=== PATIENT | male | born 1965 | race Caucasian/White ===

== ENCOUNTER 2016-09-11 11:28 | Emergency (ER) | payer OTHER ==
[~2016-09-11] VITALS: Ht 182.9 cm; Wt 130.9 kg
[~2016-09-11 11:28] MED LIST: ANCEF,KEFZ2 GM/100 M IV; ATORVASTATIN CA40 MG PO; BACLOFEN10 MG PO; CYMBALTA60 MG PO; DULOXETINE HCL60 MG PO; HYDROCODON-ACE1 EAC7 PO; IODOSORB40 GM TP; IRON325 MG PO; K-DUR20 MEQ PO; LANTUS 10100 UNITS/ SC; LANTUS 3 M100 UNITS1 SC; LASIX40 MG PO; LEVOTHYROXINE150 MCG PO; LIDOCAINE700 MG TD; LISINOPRIL20 MG PO; LYRICA100 MG PO; LYRICA150 MG PO; MAG-OXIDE400 MG PO; METFORMIN HCL1000 MG PO; METHADONE1 MG/1 ML PO; METHADONE10 MG PO; METOPROLOL TART25 MG PO; MOBIC15 MG PO; NAFCIL IV; NEURONTIN300 MG PO; NOVOLOG 10100 UNITS/ SC; OMEPRAZOLE20 MG PO; PERCOCET 10/1 TABLET PO; PRILOSEC20 MG PO; PRINIVIL20 MG PO; PROMETHAZINE HC25 M1 PO; TOPROL XL25 MG PO; XANAX0.25 MG PO; ZOFRAN4 MG PO
[2016-09-11 11:32] VITALS: BP 135/80
[2016-09-11 12:04] LABS: HEMATOCRIT 30.1 % (38.0-50.0); MCH 23.6 PG (29.0-34.0); MCHC 30.9 G/DL (30.0-36.0); MCV 76.4 FL (86-99); MEAN PLAT.VOLUME 9.5 uM^3 (9.0-12.4); PLATELET COUNT 206 K/uL (156-360); RBC DIS.WIDTH-CV 18.4 % (11.8-14.6); RBC DIS.WIDTH-SD 47.5 % (39-53); RED BLOOD COUNT 3.94 M/uL (4.00-5.50); WHITE BLOOD COUNT 8.9 K/uL (4.1-10.2)
[2016-09-11 12:13] LABS: CHLORIDE 100 mEq/L (99-109); SODIUM 140 mEq/L (136-147)
[2016-09-11 12:14] LABS: GLUCOSE 156 mg/dL (70-99)
[2016-09-11 12:16] LABS: ANION GAP 7 MEQ/L (2-14)
[2016-09-11 12:18] LABS: GFR ESTIMATE (CALCULATED) > 59 mL/min/
[2016-09-11 12:19] LABS: UREA NITROGEN (BUN) 11 mg/dL (9-23)
[2016-09-11 12:25] LABS: TROP-I INTERPRETATION NEGATIVE; TROPONIN-I 0.06 ng/mL (0.0-0.30)
== END 2016-09-11 15:05 | disposition left against medical advice (07) ==
LOC: EME 11:28
DX: M25.422 Effusion, left elbow (principal); Z53.21 Procedure and treatment not carried out due to patient leaving prior to being seen by health care provider
CPT/HCPCS: 80048; 84484; 85027; 93005

== ENCOUNTER 2016-09-13 15:56 | Emergency (ER) | payer OTHER ==
[~2016-09-13] VITALS: Ht 182.9 cm; Wt 127.2 kg
[2016-09-13 17:23] LABS: EOSINOPHIL (%) 1.9 % (0-5); EOSINOPHIL COUNT 0.1 K/uL (0-0.3); HEMATOCRIT 29.1 % (38.0-50.0); IMMATURE GRANULOCYTE (%) 0.1 % (0.0-0.7); IMMATURE GRANULOCYTE COUNT 0.1 K/uL; LYMPHOCYTE COUNT 2.1 K/uL (1.0-2.8); MCH 23.8 PG (29.0-34.0); MCHC 31.3 G/DL (30.0-36.0); MEAN PLAT.VOLUME 9.4 uM^3 (9.0-12.4); MONOCYTE (%) 6.6 % (3-12); MONOCYTE COUNT 0.5 K/uL (0-0.8); NEUTROPHIL (%) 61.4 % (45-76); NEUTROPHIL COUNT 4.3 K/uL (1.8-6.4); PLATELET COUNT 186 K/uL (156-360); RBC DIS.WIDTH-CV 17.8 % (11.8-14.6); RED BLOOD COUNT 3.83 M/uL (4.00-5.50)
[2016-09-13 17:31] LABS: CHLORIDE 100 mEq/L (99-109); SODIUM 139 mEq/L (136-147)
[2016-09-13 17:32] LABS: D-DIMER ELISA 2.33 mg/L FEU (< 0.57)
[2016-09-13 17:34] LABS: GLUCOSE 171 mg/dL (70-99)
[2016-09-13 17:35] LABS: ANION GAP 7 MEQ/L (2-14)
[2016-09-13 17:36] LABS: TOTAL BILIRUBIN 0.4 mg/dL (0.0-1.0)
[2016-09-13 17:37] LABS: ALKALINE PHOSPHATASE 118 IU/L (3-129); GFR ESTIMATE (CALCULATED) > 59 mL/min/
[2016-09-13 17:38] LABS: UREA NITROGEN (BUN) 12 mg/dL (9-23)
[2016-09-13 17:44] LABS: TROP-I INTERPRETATION NEGATIVE; TROPONIN-I 0.07 ng/mL (0.0-0.30)
[2016-09-13] MEDS ORDERED: LASIX40 MG PO (20:58)
[2016-09-13 21:27] VITALS: BP 149/70
== END 2016-09-13 21:28 | disposition home or self-care (01) ==
LOC: EME → EDBD 15:56 → EME 21:28
PROVIDERS: Emergency Medicine
DX: J90 Pleural effusion, not elsewhere classified (principal); R60.0 Localized edema; M25.522 Pain in left elbow; R10.32 Left lower quadrant pain; F17.210 Nicotine dependence, cigarettes, uncomplicated; I10 Essential (primary) hypertension; E11.9 Type 2 diabetes mellitus without complications; Z79.4 Long term (current) use of insulin; Z79.891 Long term (current) use of opiate analgesic
CPT/HCPCS: 71010; 71275; 80053; 83880; 84484; 85025; 85379; 99281; 99284; J1940; J7644

== ENCOUNTER 2016-09-30 07:30 | Inpatient (IN) | payer OTHER ==
[~2016-09-30] VITALS: Ht 182.9 cm; Wt 123.0 kg
[2016-09-30 08:16] LABS: HEMATOCRIT 28.4 % (38.0-50.0); MCH 23.7 PG (29.0-34.0); MCV 76.5 FL (86-99); MEAN PLAT.VOLUME 9.2 uM^3 (9.0-12.4); PLATELET COUNT 191 K/uL (156-360); RBC DIS.WIDTH-CV 17.5 % (11.8-14.6); RBC DIS.WIDTH-SD 45.2 % (39-53); RED BLOOD COUNT 3.71 M/uL (4.00-5.50)
[2016-09-30 08:18] LABS: BASOPHIL COUNT 0.1 K/uL (0-0.1); EOSINOPHIL (%) 1.5 % (0-5); EOSINOPHIL COUNT 0.1 K/uL (0-0.3); IMMATURE GRANULOCYTE (%) 0.3 % (0.0-0.7); IMMATURE GRANULOCYTE COUNT 0.2 K/uL; LYMPHOCYTE COUNT 2.3 K/uL (1.0-2.8); MONOCYTE (%) 7.4 % (3-12); MONOCYTE COUNT 0.6 K/uL (0-0.8); NEUTROPHIL (%) 60.8 % (45-76); NEUTROPHIL COUNT 4.9 K/uL (1.8-6.4)
[2016-09-30 08:44] LABS: CHLORIDE 97 mEq/L (99-109); POTASSIUM 3.6 mEq/L (3.7-5.4); SODIUM 139 mEq/L (136-147)
[2016-09-30 08:46] LABS: GLUCOSE 316 mg/dL (70-99)
[2016-09-30 08:48] LABS: ANION GAP 8 MEQ/L (2-14); TROP-I INTERPRETATION NEGATIVE; TROPONIN-I 0.08 ng/mL (0.0-0.30)
[2016-09-30 08:50] LABS: GFR ESTIMATE (CALCULATED) > 59 mL/min/
[2016-09-30 08:51] LABS: UREA NITROGEN (BUN) 12 mg/dL (9-23)
[2016-09-30 11:46] LABS: BASE EXCESS 10.5 mEq/L (-3 to +3); BICARBONATE 37.8 mEq/L (22-26); COMMENTS - BLOOD GASES A+C+; O2 FLOW 2 L/MIN; PCO2 61 mm Hg (35-45); PO2 69 mm Hg (80-100); SITE RR; TOTAL RESP RATE 22 resp/min
[2016-09-30] MEDS ORDERED: LYRICA200 MG PO (12:01)
[2016-09-30] MEDS ORDERED: CYMBALTA60 MG PO (12:02)
[2016-09-30] MEDS ORDERED: NOVOLOG 10100 UNITS/ SC (12:04)
[2016-09-30 12:06] LABS: HEMATOCRIT 29.6 % (38.0-50.0); IMM.RETIC FRACTION 18.7 % (3-19); MCH 23.4 PG (29.0-34.0); MCHC 30.7 G/DL (30.0-36.0); MCV 76.1 FL (86-99); MEAN PLAT.VOLUME 9.3 uM^3 (9.0-12.4); PLATELET COUNT 215 K/uL (156-360); RBC DIS.WIDTH-CV 17.3 % (11.8-14.6); RBC DIS.WIDTH-SD 45.6 % (39-53); RED BLOOD COUNT 3.89 M/uL (4.00-5.50); RETICULOCYTE COUNT 2.5 % (0.5-1.8); WHITE BLOOD COUNT 8.8 K/uL (4.1-10.2)
[2016-09-30 12:08] LABS: BASOPHIL COUNT 0.1 K/uL (0-0.1); EOSINOPHIL (%) 0.8 % (0-5); EOSINOPHIL COUNT 0.1 K/uL (0-0.3); IMMATURE GRANULOCYTE (%) 0.2 % (0.0-0.7); IMMATURE GRANULOCYTE COUNT 0.2 K/uL; LYMPHOCYTE COUNT 2.2 K/uL (1.0-2.8); MONOCYTE (%) 7.1 % (3-12); MONOCYTE COUNT 0.6 K/uL (0-0.8); NEUTROPHIL (%) 66.4 % (45-76); NEUTROPHIL COUNT 5.8 K/uL (1.8-6.4)
[2016-09-30 12:21] LABS: POINT-OF-CARE METER ID UU14100415
[2016-09-30 12:22] LABS: TOTAL BILIRUBIN 0.4 mg/dL (0.0-1.0)
[2016-09-30 12:23] LABS: ALKALINE PHOSPHATASE 101 IU/L (3-129)
[2016-09-30 12:25] LABS: DIRECT BILIRUBIN 0.2 mg/dL (0.0-0.3)
[2016-09-30 13:17] LABS: IRON 28 MCG/DL (35-150)
[2016-09-30 13:36] LABS: FERRITIN 80 NG/ML (22-322)
[2016-09-30 16:31] VITALS: BP 165/79
[2016-09-30 19:41] VITALS: BP 169/79
[2016-10-01 04:14] VITALS: BP 139/78
[2016-10-01 07:49] VITALS: BP 166/74
[2016-10-01 19:21] VITALS: BP 148/69
[2016-10-01 21:16] LABS: POINT-OF-CARE USER ID BHSKTD
[2016-10-02 00:17] VITALS: BP 146/82
[2016-10-02 04:18] VITALS: BP 172/87
[2016-10-02 07:20] LABS: ERTH.SED.RATE 119 MM/HR (0-20)
[2016-10-02 08:01] LABS: HEMATOCRIT 27.3 % (38.0-50.0); MCH 23.3 PG (29.0-34.0); MCHC 30.4 G/DL (30.0-36.0); MCV 76.7 FL (86-99); MEAN PLAT.VOLUME 9.8 uM^3 (9.0-12.4); PLATELET COUNT 179 K/uL (156-360); RBC DIS.WIDTH-CV 17.4 % (11.8-14.6); RBC DIS.WIDTH-SD 48.8 % (39-53); RED BLOOD COUNT 3.56 M/uL (4.00-5.50); WHITE BLOOD COUNT 8.3 K/uL (4.1-10.2)
[2016-10-02 08:05] LABS: ANION GAP 5 MEQ/L (2-14); CHLORIDE 98 MEQ/L (99-109); POTASSIUM 3.6 MEQ/L (3.7-5.4); SAMPLE HEMOLYSIS CHECK 0; SAMPLE ICTERIC CHECK 0; SAMPLE LIPEMIA CHECK 0; SODIUM 140 MEQ/L (136-147)
[2016-10-02 08:11] LABS: GFR ESTIMATE (CALCULATED) > 59 mL/min/; GLUCOSE 212 mg/dL (70-99); UREA NITROGEN (BUN) 19 mg/dL (9-23)
[2016-10-02 08:33] VITALS: BP 176/92
[2016-10-02 11:30] VITALS: BP 139/82
[2016-10-02 15:50] VITALS: BP 166/83
[2016-10-02 19:42] VITALS: BP 177/89
[2016-10-03] VITALS (7 sets, daily range): BP systolic 140–163; BP diastolic 71–87
[2016-10-03 07:02] LABS: HEMATOCRIT 28.6 % (38.0-50.0); MCH 23.4 PG (29.0-34.0); MCHC 29.7 G/DL (30.0-36.0); MCV 78.6 FL (86-99); MEAN PLAT.VOLUME 10.3 uM^3 (9.0-12.4); PLATELET COUNT 215 K/uL (156-360); RBC DIS.WIDTH-SD 51.4 % (39-53); RED BLOOD COUNT 3.64 M/uL (4.00-5.50); WHITE BLOOD COUNT 9.6 K/uL (4.1-10.2)
[2016-10-03 07:18] LABS: Estimated Average Glucose 171 mg/dL (70-123)
[2016-10-03 07:30] LABS: HEMOGLOBIN A1c (GLYCOHEMOGLOB) 7.6 % HGB (Below 5.7)
[2016-10-03 08:44] LABS: ANION GAP 6 MEQ/L (2-14); CHLORIDE 97 MEQ/L (99-109); GFR ESTIMATE (CALCULATED) > 59 mL/min/; POTASSIUM 3.5 MEQ/L (3.7-5.4); SAMPLE HEMOLYSIS CHECK 0; SAMPLE ICTERIC CHECK 0; SAMPLE LIPEMIA CHECK 0; SODIUM 141 MEQ/L (136-147); UREA NITROGEN (BUN) 22 mg/dL (9-23)
[2016-10-03 08:49] LABS: GLUCOSE 120 mg/dL (70-99)
[2016-10-03 23:14] LABS: HGBE Erythrocyte Cnt 3.62 Mill/uL (4.20-5.80); HGBE Hematocrit 27.4 % (38.5-50.0); HGBE Hemoglobin 8.4 g/dL (13.2-17.1); HGBE MCH 23.2 pg (27.0-33.0); HGBE MCV 75.7 FL (80.0-100.0); HGBE RDW 19.6 % (11.0-15.0)
[2016-10-04 07:08] LABS: HEMATOCRIT 27.3 % (38.0-50.0); MCH 23.7 PG (29.0-34.0); MCHC 30.4 G/DL (30.0-36.0); MEAN PLAT.VOLUME 10.1 uM^3 (9.0-12.4); PLATELET COUNT 196 K/uL (156-360); RBC DIS.WIDTH-SD 51.1 % (39-53); WHITE BLOOD COUNT 8.1 K/uL (4.1-10.2)
[2016-10-04 07:37] LABS: ANION GAP 5 MEQ/L (2-14); CHLORIDE 99 MEQ/L (99-109); GFR ESTIMATE (CALCULATED) > 59 mL/min/; POTASSIUM 3.7 MEQ/L (3.7-5.4); SAMPLE HEMOLYSIS CHECK 0; SAMPLE ICTERIC CHECK 0; SAMPLE LIPEMIA CHECK 0; SODIUM 141 MEQ/L (136-147); UREA NITROGEN (BUN) 23 mg/dL (9-23)
[2016-10-04 07:40] LABS: GLUCOSE 232 mg/dL (70-99)
[2016-10-04 08:00] VITALS: BP 162/97
[2016-10-04 11:00] VITALS: BP 139/83
[2016-10-04 16:00] VITALS: BP 140/76
[2016-10-04 20:15] VITALS: BP 141/71
[2016-10-05 00:26] VITALS: BP 160/70
[2016-10-05 04:17] VITALS: BP 160/71
[2016-10-05 07:38] VITALS: BP 143/94
[2016-10-05 08:44] LABS: HEMATOCRIT 27.8 % (38.0-50.0); MCH 23.4 PG (29.0-34.0); MCHC 29.9 G/DL (30.0-36.0); MCV 78.5 FL (86-99); MEAN PLAT.VOLUME 9.4 uM^3 (9.0-12.4); PLATELET COUNT 175 K/uL (156-360); RBC DIS.WIDTH-CV 17.7 % (11.8-14.6); RBC DIS.WIDTH-SD 50.2 % (39-53); RED BLOOD COUNT 3.54 M/uL (4.00-5.50); WHITE BLOOD COUNT 9.1 K/uL (4.1-10.2)
[2016-10-05 09:03] LABS: ANION GAP 5 MEQ/L (2-14); CHLORIDE 100 MEQ/L (99-109); GFR ESTIMATE (CALCULATED) > 59 mL/min/; GLUCOSE 192 mg/dL (70-99); POTASSIUM 3.5 MEQ/L (3.7-5.4); SAMPLE HEMOLYSIS CHECK 0; SAMPLE ICTERIC CHECK 0; SAMPLE LIPEMIA CHECK 0; SODIUM 141 MEQ/L (136-147); UREA NITROGEN (BUN) 19 mg/dL (9-23)
[2016-10-05 11:51] VITALS: BP 135/78
[2016-10-05 15:38] VITALS: BP 134/76
[2016-10-05 19:43] VITALS: BP 140/76
[2016-10-06 00:45] VITALS: BP 155/86
[2016-10-06 01:25] VITALS: BP 154/94
[2016-10-06 08:35] VITALS: BP 152/79
[2016-10-06 08:45] LABS: HEMATOCRIT 30.3 % (38.0-50.0); MCH 24.3 PG (29.0-34.0); MCV 80.8 FL (86-99); RBC DIS.WIDTH-CV 18.5 % (11.8-14.6); RBC DIS.WIDTH-SD 52.3 % (39-53); RED BLOOD COUNT 3.75 M/uL (4.00-5.50); WHITE BLOOD COUNT 10.9 K/uL (4.1-10.2)
[2016-10-06 08:56] LABS: ANION GAP 4 MEQ/L (2-14); CHLORIDE 102 MEQ/L (99-109); GFR ESTIMATE (CALCULATED) > 59 mL/min/; GLUCOSE 116 mg/dL (70-99); POTASSIUM 3.9 MEQ/L (3.7-5.4); SAMPLE HEMOLYSIS CHECK 0; SAMPLE ICTERIC CHECK 0; SAMPLE LIPEMIA CHECK 0; SODIUM 143 MEQ/L (136-147); UREA NITROGEN (BUN) 19 mg/dL (9-23)
[2016-10-06 09:25] LABS: MEAN PLAT.VOLUME 10.7 uM^3 (9.0-12.4); PLATELET COUNT 194 K/uL (156-360)
[2016-10-06] MEDS ORDERED: DOCUSATE SODIU100 MG PO (10:23)
[2016-10-06] MEDS ORDERED: PREDNISONE10 MG PO (10:23)
[2016-10-06] MEDS ORDERED: METOPROLOL TART25 MG PO (10:23)
[2016-10-06] MEDS ORDERED: ADVAIR HFA120 INHALA IH (10:23)
[2016-10-06] MEDS ORDERED: LISINOPRIL20 MG PO (10:23)
[2016-10-06] MEDS ORDERED: IRON325 MG PO (10:24)
== END 2016-10-06 15:17 | disposition home or self-care (01) | DRG 292 ==
LOC: EME 07:30 → 5SOUTH 11:23 → EDOF 11:23 → 5SOUTH 12:33
PROVIDERS: Anesthesiology; Emergency Medicine; Hospitalist; Internal Medicine; Internal Medicine Hematology & Oncology; Nurse Practitioner Family; Physician Assistant Medical
DX: I11.0 Hypertensive heart disease with heart failure (principal); I50.23 Acute on chronic systolic (congestive) heart failure; J44.1 Chronic obstructive pulmonary disease with (acute) exacerbation; I42.0 Dilated cardiomyopathy; F17.210 Nicotine dependence, cigarettes, uncomplicated; E11.40 Type 2 diabetes mellitus with diabetic neuropathy, unspecified; E78.5 Hyperlipidemia, unspecified; E66.9 Obesity, unspecified; D50.9 Iron deficiency anemia, unspecified; F11.20 Opioid dependence, uncomplicated; K59.03 Drug induced constipation; T40.2X5A Adverse effect of other opioids, initial encounter; I44.7 Left bundle-branch block, unspecified; L95.9 Vasculitis limited to the skin, unspecified; Z99.81 Dependence on supplemental oxygen; Z79.4 Long term (current) use of insulin; Z68.36 Body mass index [BMI] 36.0-36.9, adult; Z96.652 Presence of left artificial knee joint
CPT/HCPCS: 36600; 71010; 71275; 80048; 80076; 81003; 82272; 82607; 82728; 82746; 82803; 82948; 83021 90; 83036; 83540; 83880; 84443; 84484; 85025; 85025 91; 85027; 85045; 85651; 93005; 93306; 94640; 94640 76; 94760; 94799; 99202; 99281; 99285; J1644; J1756; J1815; J1885; J1940; J7050; J7512

== ENCOUNTER 2016-10-17 16:45 | Inpatient (IN) | payer OTHER ==
[~2016-10-17] VITALS: Ht 182.9 cm; Wt 128.1 kg
[~2016-10-17 16:45] MED LIST changes: +ADVAIR HFA120 INHALA IH; +DOCUSATE SODIU100 MG PO; +LYRICA200 MG PO; +PREDNISONE10 MG PO
[2016-10-17 17:18] LABS: HEMATOCRIT 26.9 % (38.0-50.0); MCH 23.6 PG (29.0-34.0); MCHC 29.7 G/DL (30.0-36.0); MCV 79.4 FL (86-99); MEAN PLAT.VOLUME 9.8 uM^3 (9.0-12.4); PLATELET COUNT 231 K/uL (156-360); RBC DIS.WIDTH-CV 18.3 % (11.8-14.6); RBC DIS.WIDTH-SD 49.2 % (39-53); RED BLOOD COUNT 3.39 M/uL (4.00-5.50); WHITE BLOOD COUNT 8.6 K/uL (4.1-10.2)
[2016-10-17 17:28] LABS: MAGNESIUM 1.5 mg/dL (1.3-2.7)
[2016-10-17 17:32] LABS: INTER. NORMALIZED RATIO 1.1; PROTHROMBIN TIME 11.2 (9.2-11.2)
[2016-10-17 17:57] LABS: TROP-I INTERPRETATION POSITIVE
[2016-10-17 17:58] LABS: TROPONIN-I 0.65 ng/mL (0.0-0.30)
[2016-10-17 18:04] LABS: CHLORIDE 95 mEq/L (99-109); POTASSIUM 4.6 mEq/L (3.7-5.4); SODIUM 135 mEq/L (136-147)
[2016-10-17 18:07] LABS: ANION GAP 11 MEQ/L (2-14)
[2016-10-17 18:09] LABS: GFR ESTIMATE (CALCULATED) > 59 mL/min/
[2016-10-17 18:10] LABS: GLUCOSE 419 mg/dL (70-99); UREA NITROGEN (BUN) 20 mg/dL (9-23)
[2016-10-17] MEDS ORDERED: LISINOPRIL40 MG PO (19:09)
[2016-10-17] MEDS ORDERED: XANAX0.5 MG PO (19:11)
[2016-10-17] MEDS ORDERED: FUROSEMIDE20 MG PO (19:12)
[2016-10-17] MEDS ORDERED: ADVAIR 250/501 DISK IH (19:13)
[2016-10-17] MEDS ORDERED: COLACE100 MG PO (19:14)
[2016-10-17] MEDS ORDERED: NOVOLOG 10100 UNITS/ SC (19:14)
[2016-10-17] MEDS ORDERED: PREDNISONE10 MG PO ×3 (19:15→19:17)
[2016-10-17] MEDS ORDERED: KLOR-CON M2020 MEQ PO (19:19)
[2016-10-17] MEDS ORDERED: PROVENTIL,2.5 MG/3 M IH (19:19)
[2016-10-17] MEDS ORDERED: PULMICORT FLE180 MCG IH (19:20)
[2016-10-17] MEDS ORDERED: VENTOLIN HFA18 GM IH (19:21)
[2016-10-17] MEDS ORDERED: DUONEB 2.5-0.5 M3 ML AEROSOL (19:26)
[2016-10-17 21:30] VITALS: BP 121/79
[2016-10-17 21:44] VITALS: BP 121/79
[2016-10-17 22:00] VITALS: BP 116/76
[2016-10-17 23:00] VITALS: BP 114/85
[2016-10-17 23:11] LABS: METH RESISTANT S AUREUS PCR NEGATIVE (NEGATIVE)
[2016-10-17 23:12] LABS: PROBE CHECK PASS; SPECIMEN PROCESSING CONTROL PASS
[2016-10-17 23:30] LABS: POINT-OF-CARE USER ID LABHNS84
[2016-10-18] VITALS (25 sets, daily range): BP systolic 82–144; BP diastolic 53–102
[2016-10-18 00:58] LABS: TROP-I INTERPRETATION POSITIVE
[2016-10-18 01:08] LABS: TROPONIN-I 0.71 ng/mL (0.0-0.30)
[2016-10-18 07:37] LABS: POINT-OF-CARE METER ID UU13113731
[2016-10-18 08:27] LABS: POINT-OF-CARE METER ID UU13113731
[2016-10-18 08:48] LABS: HEMATOCRIT 25.3 % (38.0-50.0); MCH 22.8 PG (29.0-34.0); MCHC 28.9 G/DL (30.0-36.0); MCV 79.1 FL (86-99); MEAN PLAT.VOLUME 9.3 uM^3 (9.0-12.4); PLATELET COUNT 185 K/uL (156-360); RBC DIS.WIDTH-CV 18.6 % (11.8-14.6); WHITE BLOOD COUNT 7.6 K/uL (4.1-10.2)
[2016-10-18 08:49] LABS: EOSINOPHIL (%) 1.6 % (0-5); EOSINOPHIL COUNT 0.1 K/uL (0-0.3); IMMATURE GRANULOCYTE (%) 0.3 % (0.0-0.7); LYMPHOCYTE COUNT 2.7 K/uL (1.0-2.8); MONOCYTE (%) 8.2 % (3-12); MONOCYTE COUNT 0.6 K/uL (0-0.8); NEUTROPHIL (%) 54.5 % (45-76); NEUTROPHIL COUNT 4.1 K/uL (1.8-6.4)
[2016-10-18 08:53] LABS: BASE EXCESS 12.8 mEq/L (-3 to +3); BICARBONATE 38.5 mEq/L (22-26); CARBOXY HGB 2.9 % (0-5); METHEMOGLOBIN 1.5 % (0-1.5); PCO2 58 mm Hg (35-45); PO2 67 mm Hg (80-100); pH 7.43 (7.35-7.45)
[2016-10-18 08:54] LABS: COMMENTS - BLOOD GASES A+C+; DEVICE NC; O2 FLOW 4 L/MIN; SITE LR
[2016-10-18 08:55] LABS: TOTAL RESP RATE 14 resp/min
[2016-10-18 09:03] LABS: POINT-OF-CARE METER ID UU13113731
[2016-10-18 09:14] LABS: ANION GAP 6 MEQ/L (2-14); CHLORIDE 97 MEQ/L (99-109); GFR ESTIMATE (CALCULATED) > 59 mL/min/; GLUCOSE 97 mg/dL (70-99); MAGNESIUM 1.8 mg/dl (1.3-2.7); POTASSIUM 3.7 MEQ/L (3.7-5.4); SAMPLE HEMOLYSIS CHECK 0; SAMPLE ICTERIC CHECK 0; SAMPLE LIPEMIA CHECK 0; SODIUM 140 MEQ/L (136-147); UREA NITROGEN (BUN) 17 mg/dL (9-23)
[2016-10-18 09:27] LABS: TROP-I INTERPRETATION POSITIVE
[2016-10-18 09:43] LABS: TROPONIN-I 0.93 ng/mL (0.0-0.30)
[2016-10-18 11:10] LABS: POINT-OF-CARE METER ID UU13113731
[2016-10-18 12:42] LABS: HEMATOCRIT 26.1 % (38.0-50.0); MCV 79.8 FL (86-99)
[2016-10-18 15:58] LABS: POINT-OF-CARE METER ID UU13113731
[2016-10-18 17:59] LABS: POINT-OF-CARE METER ID UU13113731
[2016-10-19] VITALS (20 sets, daily range): BP systolic 99–149; BP diastolic 56–83
[2016-10-19 05:31] LABS: MCH 22.9 PG (29.0-34.0); MCHC 28.5 G/DL (30.0-36.0); MCV 80.4 FL (86-99); MEAN PLAT.VOLUME 9.6 uM^3 (9.0-12.4); PLATELET COUNT 199 K/uL (156-360); RBC DIS.WIDTH-CV 18.4 % (11.8-14.6); RBC DIS.WIDTH-SD 53.7 % (39-53); RED BLOOD COUNT 3.36 M/uL (4.00-5.50); WHITE BLOOD COUNT 8.1 K/uL (4.1-10.2)
[2016-10-19 05:55] LABS: ANION GAP 6 MEQ/L (2-14); CHLORIDE 95 MEQ/L (99-109); GFR ESTIMATE (CALCULATED) > 59 mL/min/; SAMPLE HEMOLYSIS CHECK 0; SAMPLE ICTERIC CHECK 0; SAMPLE LIPEMIA CHECK 0; SODIUM 136 MEQ/L (136-147); UREA NITROGEN (BUN) 21 mg/dL (9-23)
[2016-10-19 05:57] LABS: GLUCOSE 392 mg/dL (70-99); MAGNESIUM 2.2 mg/dl (1.3-2.7); POTASSIUM 4.5 MEQ/L (3.7-5.4)
[2016-10-19 06:00] LABS: EOSINOPHIL (%) 1.1 % (0-5); EOSINOPHIL COUNT 0.1 K/uL (0-0.3); IMMATURE GRANULOCYTE (%) 0.4 % (0.0-0.7); LYMPHOCYTE COUNT 1.6 K/uL (1.0-2.8); MONOCYTE COUNT 0.6 K/uL (0-0.8); NEUTROPHIL (%) 71.5 % (45-76); NEUTROPHIL COUNT 5.8 K/uL (1.8-6.4)
[2016-10-19 06:05] LABS: TROP-I INTERPRETATION POSITIVE
[2016-10-19 06:14] LABS: TROPONIN-I 0.76 ng/mL (0.0-0.30)
[2016-10-19 11:58] LABS: POINT-OF-CARE METER ID UU13113803
[2016-10-19 16:37] LABS: POINT-OF-CARE METER ID UU13113803
[2016-10-20] VITALS (8 sets, daily range): BP systolic 116–150; BP diastolic 46–85
[2016-10-20 05:37] LABS: HEMATOCRIT 26.9 % (38.0-50.0); MCH 24.4 PG (29.0-34.0); MCHC 30.1 G/DL (30.0-36.0); MEAN PLAT.VOLUME 10.1 uM^3 (9.0-12.4); PLATELET COUNT 199 K/uL (156-360); RBC DIS.WIDTH-CV 18.6 % (11.8-14.6); RBC DIS.WIDTH-SD 55.2 % (39-53); RED BLOOD COUNT 3.32 M/uL (4.00-5.50); WHITE BLOOD COUNT 7.6 K/uL (4.1-10.2)
[2016-10-20 06:19] LABS: EOSINOPHIL (%) 1.2 % (0-5); EOSINOPHIL COUNT 0.1 K/uL (0-0.3); IMMATURE GRANULOCYTE (%) 0.5 % (0.0-0.7); LYMPHOCYTE COUNT 2.5 K/uL (1.0-2.8); MONOCYTE (%) 6.7 % (3-12); MONOCYTE COUNT 0.5 K/uL (0-0.8); NEUTROPHIL (%) 59.2 % (45-76); NEUTROPHIL COUNT 4.5 K/uL (1.8-6.4)
[2016-10-20 06:24] LABS: ANION GAP 6 MEQ/L (2-14); CHLORIDE 96 MEQ/L (99-109); GFR ESTIMATE (CALCULATED) > 59 mL/min/; GLUCOSE 322 mg/dL (70-99); POTASSIUM 4.5 MEQ/L (3.7-5.4); SAMPLE HEMOLYSIS CHECK 0; SAMPLE ICTERIC CHECK 0; SAMPLE LIPEMIA CHECK 0; SODIUM 136 MEQ/L (136-147); UREA NITROGEN (BUN) 20 mg/dL (9-23)
[2016-10-20 07:31] LABS: DIGOXIN 1.3 ng/mL (0.8-2.0)
[2016-10-20 09:22] LABS: POINT-OF-CARE METER ID UU13113731
[2016-10-20 17:14] LABS: POINT-OF-CARE METER ID UU13113731
[2016-10-20 22:47] LABS: POINT-OF-CARE USER ID RADDRS44
[2016-10-21] VITALS (10 sets, daily range): BP systolic 126–196; BP diastolic 68–101
[2016-10-21 05:30] LABS: HEMATOCRIT 27.1 % (38.0-50.0); MCHC 29.5 G/DL (30.0-36.0); MCV 81.1 FL (86-99); PLATELET COUNT 221 K/uL (156-360); RBC DIS.WIDTH-CV 18.2 % (11.8-14.6); RBC DIS.WIDTH-SD 53.8 % (39-53); RED BLOOD COUNT 3.34 M/uL (4.00-5.50); WHITE BLOOD COUNT 7.4 K/uL (4.1-10.2)
[2016-10-21 06:46] LABS: ANION GAP 6 MEQ/L (2-14); CHLORIDE 94 MEQ/L (99-109); GFR ESTIMATE (CALCULATED) > 59 mL/min/; GLUCOSE 386 mg/dL (70-99); MAGNESIUM 1.8 mg/dl (1.3-2.7); POTASSIUM 4.5 MEQ/L (3.7-5.4); SAMPLE HEMOLYSIS CHECK 0; SAMPLE ICTERIC CHECK 0; SAMPLE LIPEMIA CHECK 0; SODIUM 136 MEQ/L (136-147); UREA NITROGEN (BUN) 18 mg/dL (9-23)
[2016-10-21 07:02] LABS: EOSINOPHIL (%) 0.8 % (0-5); EOSINOPHIL COUNT 0.1 K/uL (0-0.3); IMMATURE GRANULOCYTE (%) 0.7 % (0.0-0.7); IMMATURE GRANULOCYTE COUNT 0.1 K/uL; LYMPHOCYTE COUNT 1.8 K/uL (1.0-2.8); MONOCYTE (%) 5.3 % (3-12); MONOCYTE COUNT 0.4 K/uL (0-0.8); NEUTROPHIL (%) 68.4 % (45-76); PLAT.SUFFICIENCY ADEQUATE; USER ID MCB
[2016-10-21 12:33] LABS: POINT-OF-CARE METER ID UU13113803
[2016-10-21 12:39] LABS: POINT-OF-CARE METER ID UU13113731; POINT-OF-CARE USER ID LABHNS84
[2016-10-21 12:47] LABS: POINT-OF-CARE METER ID UU13113748
[2016-10-21 16:18] LABS: POINT-OF-CARE METER ID UU13113748
[2016-10-21 21:51] LABS: POINT-OF-CARE METER ID UU13113803; POINT-OF-CARE USER ID RADDRS44
[2016-10-22] VITALS: BP 149/90
[2016-10-22 04:00] VITALS: BP 145/82
[2016-10-22 05:30] LABS: HEMATOCRIT 28.6 % (38.0-50.0); MCH 22.9 PG (29.0-34.0); MCHC 28.7 G/DL (30.0-36.0); MCV 79.9 FL (86-99); MEAN PLAT.VOLUME 9.4 uM^3 (9.0-12.4); PLATELET COUNT 217 K/uL (156-360); RBC DIS.WIDTH-CV 18.2 % (11.8-14.6); RBC DIS.WIDTH-SD 52.9 % (39-53); RED BLOOD COUNT 3.58 M/uL (4.00-5.50); WHITE BLOOD COUNT 8.4 K/uL (4.1-10.2)
[2016-10-22 05:57] LABS: EOSINOPHIL (%) 1.4 % (0-5); EOSINOPHIL COUNT 0.1 K/uL (0-0.3); IMMATURE GRANULOCYTE (%) 0.4 % (0.0-0.7); LYMPHOCYTE COUNT 3.4 K/uL (1.0-2.8); MONOCYTE (%) 5.8 % (3-12); MONOCYTE COUNT 0.5 K/uL (0-0.8); NEUTROPHIL (%) 52.3 % (45-76); NEUTROPHIL COUNT 4.4 K/uL (1.8-6.4)
[2016-10-22 06:13] LABS: ALKALINE PHOSPHATASE 90 IU/L (3-129); ANION GAP 7 MEQ/L (2-14); CHLORIDE 96 MEQ/L (99-109); GFR ESTIMATE (CALCULATED) > 59 mL/min/; MAGNESIUM 1.8 mg/dl (1.3-2.7); POTASSIUM 3.6 MEQ/L (3.7-5.4); SAMPLE HEMOLYSIS CHECK 0; SAMPLE ICTERIC CHECK 0; SAMPLE LIPEMIA CHECK 0; SODIUM 141 MEQ/L (136-147); TOTAL BILIRUBIN 0.5 MG/DL (0.0-1.0); UREA NITROGEN (BUN) 15 mg/dL (9-23)
[2016-10-22 06:16] LABS: GLUCOSE 126 mg/dL (70-99)
[2016-10-22 08:00] VITALS: BP 160/91
[2016-10-22 10:50] LABS: POINT-OF-CARE METER ID UU13113748
[2016-10-22 12:00] VITALS: BP 144/68
[2016-10-22 16:00] VITALS: BP 162/87
[2016-10-22 16:35] LABS: POINT-OF-CARE METER ID UU14174217
[2016-10-22 20:00] VITALS: BP 158/81
[2016-10-22 22:24] LABS: POINT-OF-CARE METER ID UU14174217
[2016-10-23] VITALS: BP 158/89
[2016-10-23 04:00] VITALS: BP 158/92
[2016-10-23 05:46] LABS: HEMATOCRIT 30.7 % (38.0-50.0); MCH 23.4 PG (29.0-34.0); MCV 80.8 FL (86-99); MEAN PLAT.VOLUME 9.5 uM^3 (9.0-12.4); NRBC (%) 0.3 /100 WBC (0-0); PLATELET COUNT 258 K/uL (156-360); RBC DIS.WIDTH-CV 18.5 % (11.8-14.6); RBC DIS.WIDTH-SD 53.6 % (39-53); WHITE BLOOD COUNT 8.5 K/uL (4.1-10.2)
[2016-10-23 05:55] LABS: POINT-OF-CARE METER ID UU13113731
[2016-10-23 06:14] LABS: POINT-OF-CARE METER ID UU14162636
[2016-10-23 06:27] LABS: ALKALINE PHOSPHATASE 87 IU/L (3-129); ANION GAP 8 MEQ/L (2-14); CHLORIDE 96 MEQ/L (99-109); GFR ESTIMATE (CALCULATED) > 59 mL/min/; MAGNESIUM 1.8 mg/dl (1.3-2.7); POTASSIUM 3.5 MEQ/L (3.7-5.4); SAMPLE HEMOLYSIS CHECK 0; SAMPLE ICTERIC CHECK 0; SAMPLE LIPEMIA CHECK 0; SODIUM 144 MEQ/L (136-147); TOTAL BILIRUBIN 0.6 MG/DL (0.0-1.0); UREA NITROGEN (BUN) 13 mg/dL (9-23)
[2016-10-23 06:37] LABS: EOSINOPHIL (%) 1.3 % (0-5); EOSINOPHIL COUNT 0.1 K/uL (0-0.3); IMMATURE GRANULOCYTE (%) 0.6 % (0.0-0.7); IMMATURE GRANULOCYTE COUNT 0.1 K/uL; LYMPHOCYTE COUNT 3.7 K/uL (1.0-2.8); MONOCYTE (%) 6.8 % (3-12); MONOCYTE COUNT 0.6 K/uL (0-0.8); NEUTROPHIL (%) 47.6 % (45-76); NEUTROPHIL COUNT 4.1 K/uL (1.8-6.4)
[2016-10-23 06:47] LABS: POINT-OF-CARE METER ID UU13113731; POINT-OF-CARE USER ID ENVSME70
[2016-10-23 06:51] LABS: GLUCOSE 65 mg/dL (70-99)
[2016-10-23 07:21] LABS: ANION GAP ND MEQ/L (2-14); CHLORIDE 95 MEQ/L (99-109); GFR ESTIMATE (CALCULATED) > 59 mL/min/; GLUCOSE 62 mg/dL (70-99); POTASSIUM 3.4 MEQ/L (3.7-5.4); SAMPLE HEMOLYSIS CHECK 0; SAMPLE ICTERIC CHECK 0; SAMPLE LIPEMIA CHECK 0; SODIUM 142 MEQ/L (136-147); UREA NITROGEN (BUN) 13 mg/dL (9-23)
[2016-10-23 07:23] LABS: CARBON DIOXIDE (BICARBONATE) > 40.0 MEQ/L (20-31)
[2016-10-23 07:27] LABS: DIGOXIN 0.7 ng/mL (0.8-2.0)
[2016-10-23 08:00] VITALS: BP 139/61
[2016-10-23 08:04] LABS: POINT-OF-CARE METER ID UU13113731
[2016-10-23 11:00] VITALS: BP 152/87
[2016-10-23 11:09] LABS: POINT-OF-CARE METER ID UU13113731
[2016-10-23 12:32] LABS: POINT-OF-CARE METER ID UU13113694
[2016-10-23 13:44] LABS: POINT-OF-CARE METER ID UU13113819
[2016-10-23 16:00] VITALS: BP 162/87
[2016-10-23 16:11] LABS: POINT-OF-CARE METER ID UU14162636
[2016-10-23 20:00] VITALS: BP 158/80
[2016-10-23 21:38] LABS: POINT-OF-CARE METER ID UU14162636
[2016-10-24] VITALS: BP 139/72
[2016-10-24 04:00] VITALS: BP 150/70
[2016-10-24 05:53] LABS: HEMATOCRIT 29.8 % (38.0-50.0); MCHC 28.2 G/DL (30.0-36.0); MCV 81.4 FL (86-99); MEAN PLAT.VOLUME 9.4 uM^3 (9.0-12.4); NRBC (%) 0.2 /100 WBC (0-0); PLATELET COUNT 257 K/uL (156-360); RBC DIS.WIDTH-CV 18.8 % (11.8-14.6); RBC DIS.WIDTH-SD 55.8 % (39-53); RED BLOOD COUNT 3.66 M/uL (4.00-5.50); WHITE BLOOD COUNT 8.7 K/uL (4.1-10.2)
[2016-10-24 06:11] LABS: POINT-OF-CARE METER ID UU13113731
[2016-10-24 06:26] LABS: EOSINOPHIL (%) 1.7 % (0-5); EOSINOPHIL COUNT 0.2 K/uL (0-0.3); IMMATURE GRANULOCYTE (%) 0.5 % (0.0-0.7); LYMPHOCYTE COUNT 3.8 K/uL (1.0-2.8); MONOCYTE (%) 7.4 % (3-12); MONOCYTE COUNT 0.7 K/uL (0-0.8); NEUTROPHIL (%) 46.2 % (45-76)
[2016-10-24 06:50] LABS: ALKALINE PHOSPHATASE 85 IU/L (3-129); ANION GAP 6 MEQ/L (2-14); CHLORIDE 99 MEQ/L (99-109); GFR ESTIMATE (CALCULATED) > 59 mL/min/; GLUCOSE 71 mg/dL (70-99); MAGNESIUM 1.8 mg/dl (1.3-2.7); POTASSIUM 3.2 MEQ/L (3.7-5.4); SAMPLE HEMOLYSIS CHECK 0; SAMPLE ICTERIC CHECK 0; SAMPLE LIPEMIA CHECK 0; SODIUM 142 MEQ/L (136-147); UREA NITROGEN (BUN) 13 mg/dL (9-23)
[2016-10-24 07:06] LABS: TOTAL BILIRUBIN 0.8 MG/DL (0.0-1.0)
[2016-10-24 08:00] VITALS: BP 148/71
[2016-10-24 10:55] LABS: POINT-OF-CARE METER ID UU13113731
[2016-10-24 12:57] VITALS: BP 146/80
[2016-10-24 13:05] LABS: POINT-OF-CARE METER ID UU13113807
[2016-10-24 15:54] LABS: POINT-OF-CARE METER ID UU13113807
[2016-10-24 16:35] VITALS: BP 145/80
[2016-10-24 20:05] VITALS: BP 171/98
[2016-10-24 21:07] LABS: POINT-OF-CARE METER ID UU13113807
[2016-10-25 06:55] LABS: HEMATOCRIT 29.7 % (38.0-50.0); MCH 23.2 PG (29.0-34.0); MCHC 29.3 G/DL (30.0-36.0); MCV 79.2 FL (86-99); MEAN PLAT.VOLUME 9.4 uM^3 (9.0-12.4); NRBC (%) 0.2 /100 WBC (0-0); PLATELET COUNT 269 K/uL (156-360); RBC DIS.WIDTH-CV 18.6 % (11.8-14.6); RBC DIS.WIDTH-SD 52.4 % (39-53); RED BLOOD COUNT 3.75 M/uL (4.00-5.50); WHITE BLOOD COUNT 10.9 K/uL (4.1-10.2)
[2016-10-25 07:12] LABS: EOSINOPHIL (%) 1.2 % (0-5); EOSINOPHIL COUNT 0.1 K/uL (0-0.3); IMMATURE GRANULOCYTE (%) 0.6 % (0.0-0.7); IMMATURE GRANULOCYTE COUNT 0.1 K/uL; LYMPHOCYTE COUNT 2.3 K/uL (1.0-2.8); MONOCYTE (%) 6.1 % (3-12); MONOCYTE COUNT 0.7 K/uL (0-0.8); NEUTROPHIL (%) 71.2 % (45-76); NEUTROPHIL COUNT 7.8 K/uL (1.8-6.4)
[2016-10-25 07:33] VITALS: BP 173/86
[2016-10-25 07:57] LABS: POINT-OF-CARE METER ID UU13113807
[2016-10-25 09:10] LABS: ALKALINE PHOSPHATASE 89 IU/L (3-129); ANION GAP 6 MEQ/L (2-14); CHLORIDE 97 MEQ/L (99-109); GFR ESTIMATE (CALCULATED) > 59 mL/min/; MAGNESIUM 1.7 mg/dl (1.3-2.7); POTASSIUM 3.3 MEQ/L (3.7-5.4); SAMPLE HEMOLYSIS CHECK 0; SAMPLE ICTERIC CHECK 0; SAMPLE LIPEMIA CHECK 0; SODIUM 139 MEQ/L (136-147); TOTAL BILIRUBIN 0.9 MG/DL (0.0-1.0); UREA NITROGEN (BUN) 11 mg/dL (9-23)
[2016-10-25 09:13] LABS: GLUCOSE 94 mg/dL (70-99)
[2016-10-25 11:16] LABS: POINT-OF-CARE METER ID UU13113807
[2016-10-25] MEDS ORDERED: LOSARTAN POTASS25 MG PO (12:55)
[2016-10-25] MEDS ORDERED: METOPROLOL TART25 MG PO (12:55)
[2016-10-25] MEDS ORDERED: ELIQUIS5 MG PO (12:55)
[2016-10-25] MEDS ORDERED: DIGOXIN250 MCG PO (12:55)
[2016-10-25] MEDS ORDERED: NAFCIL 2 G2 GM/100 M IV (12:55)
[2016-10-25 13:08] LABS: POINT-OF-CARE METER ID UU13113807
[2016-10-25 15:31] VITALS: BP 152/70
[2016-10-25 15:38] LABS: POINT-OF-CARE METER ID UU13113807
== END 2016-10-25 16:13 | disposition home or self-care (01) | DRG 308 ==
LOC: EME 16:45 → EDOF 20:07 → 4SOUTH 20:07 → 4WEST 20:07 → 4SOUTH 10-24 12:14
PROVIDERS: Emergency Medicine; Hospitalist; Internal Medicine; Internal Medicine Critical Care Medicine; Internal Medicine Nephrology; Physician Assistant Medical; Surgery
DX: I48.91 Unspecified atrial fibrillation (principal); I50.23 Acute on chronic systolic (congestive) heart failure; I24.8 Other forms of acute ischemic heart disease; E87.1 Hypo-osmolality and hyponatremia; M86.671 Other chronic osteomyelitis, right ankle and foot; J96.11 Chronic respiratory failure with hypoxia; R78.81 Bacteremia; B95.62 Methicillin resistant Staphylococcus aureus infection as the cause of diseases classified elsewhere; I48.92 Unspecified atrial flutter; E87.8 Other disorders of electrolyte and fluid balance, not elsewhere classified; I10 Essential (primary) hypertension; E78.2 Mixed hyperlipidemia; E11.40 Type 2 diabetes mellitus with diabetic neuropathy, unspecified; E11.610 Type 2 diabetes mellitus with diabetic neuropathic arthropathy; E11.65 Type 2 diabetes mellitus with hyperglycemia; I42.0 Dilated cardiomyopathy; J44.9 Chronic obstructive pulmonary disease, unspecified; G47.33 Obstructive sleep apnea (adult) (pediatric); D64.9 Anemia, unspecified; E03.9 Hypothyroidism, unspecified; Z96.652 Presence of left artificial knee joint; F17.210 Nicotine dependence, cigarettes, uncomplicated; E66.01 Morbid (severe) obesity due to excess calories; Z68.39 Body mass index [BMI] 39.0-39.9, adult; Z99.81 Dependence on supplemental oxygen; Z79.891 Long term (current) use of opiate analgesic; Z91.14 Patient's other noncompliance with medication regimen
CPT/HCPCS: 36600; 71010; 71275; 73630; 76937; 80048; 80048 91; 80053; 80162; 80202; 82803; 82948; 83605; 83735; 84100; 84484; 85014; 85018; 85025; 85027; 85610; 85730; 86850; 86900; 86901; 86920; 87040; 87077; 87186; 87641; 87801; 93005; 93306; 93312; 93970; 94640; 94640 76; 94799; 99202; 99281; 99285; J0153; J1160; J1170; J1644; J1650; J1815; J1885; J2060; J2543; J2704; J3370; J3475; J7040; J7050; J7512; S0032

== ENCOUNTER 2016-11-02 19:37 | Inpatient (IN) | payer OTHER ==
[~2016-11-02] VITALS: Ht 182.9 cm; Wt 135.3 kg
[~2016-11-02 19:37] MED LIST changes: +ADVAIR 250/501 DISK IH; +COLACE100 MG PO; +DIGOXIN250 MCG PO; +DUONEB 2.5-0.5 M3 ML AEROSOL; +ELIQUIS5 MG PO; +FUROSEMIDE20 MG PO; +KLOR-CON M2020 MEQ PO; +LISINOPRIL40 MG PO; +LOSARTAN POTASS25 MG PO; +NAFCIL 2 G2 GM/100 M IV; +PROVENTIL,2.5 MG/3 M IH; +PULMICORT FLE180 MCG IH; +VENTOLIN HFA18 GM IH; +XANAX0.5 MG PO
[2016-11-02 20:22] LABS: POINT-OF-CARE METER ID UU13113702
[2016-11-02 20:40] LABS: HEMATOCRIT 29.2 % (38.0-50.0); MCHC 29.8 G/DL (30.0-36.0); MEAN PLAT.VOLUME 9.9 uM^3 (9.0-12.4); NRBC (%) 0.2 /100 WBC (0-0); RBC DIS.WIDTH-CV 22.8 % (11.8-14.6); RBC DIS.WIDTH-SD 66.2 % (39-53); RED BLOOD COUNT 3.48 M/uL (4.00-5.50)
[2016-11-02 20:47] LABS: MCV 83.9 FL (86-99); PLATELET COUNT 272 K/uL (156-360); WHITE BLOOD COUNT 9.5 K/uL (4.1-10.2)
[2016-11-02 20:48] LABS: CARBON DIOXIDE (BICARBONATE) 37.7 MEQ/L (20-31)
[2016-11-02 20:52] LABS: CHLORIDE 103 mEq/L (99-109); INTER. NORMALIZED RATIO 1.2; PTT 26.4 (25-32); SODIUM 141 mEq/L (136-147)
[2016-11-02 20:53] LABS: GLUCOSE 319 mg/dL (70-99)
[2016-11-02 20:55] LABS: ANION GAP 11 MEQ/L (2-14); POTASSIUM 3.5 mEq/L (3.7-5.4)
[2016-11-02 20:57] LABS: GFR ESTIMATE (CALCULATED) > 59 mL/min/
[2016-11-02 20:58] LABS: UREA NITROGEN (BUN) 8 mg/dL (9-23)
[2016-11-02 21:07] LABS: BASE EXCESS 5.7 mEq/L (-3 to +3); BICARBONATE 31.1 mEq/L (22-26); CARBOXY HGB 5.5 % (0-5); COMMENTS - BLOOD GASES C+A+; DEVICE VENTILATOR; FI02 30 %; MODE SPONT-NIV; PCO2 49 mm Hg (35-45); PEEP 5 CM/H20; PO2 86 mm Hg (80-100); PRES. SUPPORT 8 CM/H2O; SITE LR; TOTAL RESP RATE 14 resp/min; pH 7.41 (7.35-7.45)
[2016-11-02 21:18] LABS: BASOPHIL COUNT 0.1 K/uL (0-0.1); EOSINOPHIL (%) 1.9 % (0-5); EOSINOPHIL COUNT 0.2 K/uL (0-0.3); IMMATURE GRANULOCYTE (%) 0.5 % (0.0-0.7); IMMATURE GRANULOCYTE COUNT 0.1 K/uL; INSTRUMENT ABS NEUTROPHIL CT 6.2 K/uL; LYMPHOCYTE COUNT 2.4 K/uL (1.0-2.8); MONOCYTE (%) 5.8 % (3-12); MONOCYTE COUNT 0.6 K/uL (0-0.8); NEUTROPHIL (%) 65.9 % (45-76); NEUTROPHIL COUNT 6.2 K/uL (1.8-6.4)
[2016-11-02 21:38] LABS: TROP-I INTERPRETATION NEGATIVE; TROPONIN-I 0.11 ng/mL (0.0-0.30)
[2016-11-02] MEDS ORDERED: NAFCIL2 GM IV (22:38)
[2016-11-02] MEDS ORDERED: LISINOPRIL40 MG PO (22:40)
[2016-11-02] MEDS ORDERED: LASIX40 MG PO (22:42)
[2016-11-02 22:49] LABS: TROP-I INTERPRETATION NEGATIVE; TROPONIN-I 0.12 ng/mL (0.0-0.30)
[2016-11-03] VITALS (8 sets, daily range): BP systolic 140–190; BP diastolic 69–91
[2016-11-03] MEDS ORDERED: METHADONE10 MG PO (00:01)
[2016-11-03 00:07] LABS: DIGOXIN 0.4 ng/mL (0.8-2.0)
[2016-11-03 00:51] LABS: POINT-OF-CARE METER ID UU13113781
[2016-11-03 01:30] LABS: METH RESISTANT S AUREUS PCR NEGATIVE (NEGATIVE)
[2016-11-03 01:31] LABS: PROBE CHECK PASS; SPECIMEN PROCESSING CONTROL PASS
[2016-11-03 03:43] LABS: TROP-I INTERPRETATION NEGATIVE; TROPONIN-I 0.11 ng/mL (0.0-0.30)
[2016-11-03 06:33] LABS: HEMATOCRIT 26.3 % (38.0-50.0); MCHC 29.3 G/DL (30.0-36.0); MCV 85.4 FL (86-99); RBC DIS.WIDTH-CV 22.7 % (11.8-14.6); RBC DIS.WIDTH-SD 67.7 % (39-53); RED BLOOD COUNT 3.08 M/uL (4.00-5.50); WHITE BLOOD COUNT 7.5 K/uL (4.1-10.2)
[2016-11-03 06:47] LABS: CHLORIDE 103 mEq/L (99-109); POTASSIUM 3.2 mEq/L (3.7-5.4); SODIUM 142 mEq/L (136-147)
[2016-11-03 06:48] LABS: GLUCOSE 191 mg/dL (70-99)
[2016-11-03 06:50] LABS: ANION GAP 7 MEQ/L (2-14)
[2016-11-03 06:52] LABS: GFR ESTIMATE (CALCULATED) > 59 mL/min/
[2016-11-03 06:53] LABS: UREA NITROGEN (BUN) 8 mg/dL (9-23)
[2016-11-03 07:50] LABS: POINT-OF-CARE METER ID UU14174216
[2016-11-03 07:55] LABS: MEAN PLAT.VOLUME 9.9 uM^3 (9.0-12.4)
[2016-11-03 08:05] LABS: PLATELET COUNT 184 K/uL (156-360)
[2016-11-03 10:25] LABS: TROP-I INTERPRETATION NEGATIVE; TROPONIN-I 0.15 ng/mL (0.0-0.30)
[2016-11-03 11:32] LABS: POINT-OF-CARE METER ID UU14174216
[2016-11-03 16:32] LABS: POINT-OF-CARE METER ID UU14174216
[2016-11-03 21:33] LABS: POINT-OF-CARE METER ID UU14174216
[2016-11-04 04:41] VITALS: BP 140/72
[2016-11-04 07:00] VITALS: BP 164/77
[2016-11-04 07:05] LABS: BASOPHIL COUNT 0.1 K/uL (0-0.1); EOSINOPHIL (%) 2.3 % (0-5); EOSINOPHIL COUNT 0.2 K/uL (0-0.3); HEMATOCRIT 28.8 % (38.0-50.0); IMMATURE GRANULOCYTE (%) 0.3 % (0.0-0.7); INSTRUMENT ABS NEUTROPHIL CT 5.6 K/uL; LYMPHOCYTE COUNT 2.8 K/uL (1.0-2.8); MCH 25.1 PG (29.0-34.0); MCHC 29.5 G/DL (30.0-36.0); MEAN PLAT.VOLUME 9.8 uM^3 (9.0-12.4); MONOCYTE (%) 6.2 % (3-12); MONOCYTE COUNT 0.6 K/uL (0-0.8); NEUTROPHIL (%) 60.6 % (45-76); NEUTROPHIL COUNT 5.6 K/uL (1.8-6.4); RBC DIS.WIDTH-CV 22.8 % (11.8-14.6); RBC DIS.WIDTH-SD 68.5 % (39-53); RED BLOOD COUNT 3.39 M/uL (4.00-5.50); WHITE BLOOD COUNT 9.3 K/uL (4.1-10.2)
[2016-11-04 07:22] LABS: PLATELET COUNT 253 K/uL (156-360)
[2016-11-04 07:25] LABS: ANION GAP 7 MEQ/L (2-14); CHLORIDE 97 MEQ/L (99-109); GFR ESTIMATE (CALCULATED) > 59 mL/min/; GLUCOSE 229 mg/dL (70-99); POTASSIUM 3.4 MEQ/L (3.7-5.4); SAMPLE HEMOLYSIS CHECK 0; SAMPLE ICTERIC CHECK 0; SAMPLE LIPEMIA CHECK 0; SODIUM 140 MEQ/L (136-147); UREA NITROGEN (BUN) 11 mg/dL (9-23)
[2016-11-04 07:55] LABS: POINT-OF-CARE USER ID NUTSLF44
[2016-11-04 11:30] VITALS: BP 139/63
[2016-11-04 12:05] LABS: POINT-OF-CARE USER ID NUTSLF44
[2016-11-04 16:34] LABS: POINT-OF-CARE USER ID NUTSLF44
[2016-11-04 16:50] VITALS: BP 167/80
[2016-11-04 20:45] VITALS: BP 176/81
[2016-11-04 22:37] LABS: POINT-OF-CARE METER ID UU13113698
[2016-11-05] VITALS (8 sets, daily range): BP systolic 126–168; BP diastolic 62–81
[2016-11-05 07:04] LABS: EOSINOPHIL (%) 2.7 % (0-5); EOSINOPHIL COUNT 0.2 K/uL (0-0.3); HEMATOCRIT 27.2 % (38.0-50.0); IMMATURE GRANULOCYTE (%) 0.3 % (0.0-0.7); INSTRUMENT ABS NEUTROPHIL CT 3.4 K/uL; MCH 25.1 PG (29.0-34.0); MCV 86.3 FL (86-99); MEAN PLAT.VOLUME 9.7 uM^3 (9.0-12.4); MONOCYTE (%) 7.8 % (3-12); MONOCYTE COUNT 0.6 K/uL (0-0.8); NEUTROPHIL (%) 46.7 % (45-76); NEUTROPHIL COUNT 3.4 K/uL (1.8-6.4); PLATELET COUNT 203 K/uL (156-360); RBC DIS.WIDTH-CV 23.1 % (11.8-14.6); RBC DIS.WIDTH-SD 70.4 % (39-53); RED BLOOD COUNT 3.15 M/uL (4.00-5.50); WHITE BLOOD COUNT 7.2 K/uL (4.1-10.2)
[2016-11-05 07:14] LABS: POINT-OF-CARE METER ID UU14174216
[2016-11-05 07:28] LABS: ANION GAP 4 MEQ/L (2-14); CHLORIDE 100 MEQ/L (99-109); GFR ESTIMATE (CALCULATED) > 59 mL/min/; GLUCOSE 178 mg/dL (70-99); POTASSIUM 3.7 MEQ/L (3.7-5.4); SAMPLE HEMOLYSIS CHECK 0; SAMPLE ICTERIC CHECK 0; SAMPLE LIPEMIA CHECK 0; SODIUM 143 MEQ/L (136-147); UREA NITROGEN (BUN) 11 mg/dL (9-23)
[2016-11-05 11:18] LABS: POINT-OF-CARE METER ID UU14174216
[2016-11-05 16:24] LABS: POINT-OF-CARE METER ID UU13113781
[2016-11-05 20:58] LABS: POINT-OF-CARE METER ID UU14174216
[2016-11-06 03:00] VITALS: BP 178/84
[2016-11-06 07:01] VITALS: BP 146/73
[2016-11-06 07:31] LABS: POINT-OF-CARE METER ID UU13113698
[2016-11-06 09:48] LABS: HEMATOCRIT 26.6 % (38.0-50.0); MCH 25.3 PG (29.0-34.0); MCHC 28.9 G/DL (30.0-36.0); MCV 87.5 FL (86-99); PLATELET COUNT 201 K/uL (156-360); RBC DIS.WIDTH-CV 22.9 % (11.8-14.6); RBC DIS.WIDTH-SD 71.9 % (39-53); RED BLOOD COUNT 3.04 M/uL (4.00-5.50); WHITE BLOOD COUNT 6.9 K/uL (4.1-10.2)
[2016-11-06 10:01] LABS: ANION GAP 4 MEQ/L (2-14); CHLORIDE 101 MEQ/L (99-109); GFR ESTIMATE (CALCULATED) > 59 mL/min/; POTASSIUM 3.6 MEQ/L (3.7-5.4); SAMPLE HEMOLYSIS CHECK 0; SAMPLE ICTERIC CHECK 0; SAMPLE LIPEMIA CHECK 0; SODIUM 142 MEQ/L (136-147); UREA NITROGEN (BUN) 14 mg/dL (9-23)
[2016-11-06 10:22] LABS: GLUCOSE 290 mg/dL (70-99)
[2016-11-06 10:52] LABS: POINT-OF-CARE METER ID UU13113696
[2016-11-06 15:19] VITALS: BP 165/79
[2016-11-06 16:17] LABS: POINT-OF-CARE METER ID UU13113781
[2016-11-06 19:15] VITALS: BP 141/64
[2016-11-06 21:09] LABS: POINT-OF-CARE METER ID UU13113781
[2016-11-06 23:15] VITALS: BP 168/74
[2016-11-07] VITALS (9 sets, daily range): BP systolic 137–161; BP diastolic 65–78
[2016-11-07 07:36] LABS: HEMATOCRIT 25.9 % (38.0-50.0); MCH 26.2 PG (29.0-34.0); MCHC 29.7 G/DL (30.0-36.0); MCV 88.1 FL (86-99); MEAN PLAT.VOLUME 9.4 uM^3 (9.0-12.4); PLATELET COUNT 165 K/uL (156-360); RBC DIS.WIDTH-CV 22.8 % (11.8-14.6); RBC DIS.WIDTH-SD 72.6 % (39-53); RED BLOOD COUNT 2.94 M/uL (4.00-5.50); WHITE BLOOD COUNT 6.6 K/uL (4.1-10.2)
[2016-11-07 08:01] LABS: ANION GAP 3 MEQ/L (2-14); CHLORIDE 98 MEQ/L (99-109); GFR ESTIMATE (CALCULATED) > 59 mL/min/; GLUCOSE 382 mg/dL (70-99); POTASSIUM 3.9 MEQ/L (3.7-5.4); SAMPLE HEMOLYSIS CHECK 0; SAMPLE ICTERIC CHECK 0; SAMPLE LIPEMIA CHECK 0; SODIUM 138 MEQ/L (136-147); UREA NITROGEN (BUN) 14 mg/dL (9-23)
[2016-11-07 12:05] LABS: POINT-OF-CARE METER ID UU14174216; POINT-OF-CARE USER ID ENVKC36
[2016-11-07 16:31] LABS: POINT-OF-CARE METER ID UU14174216
[2016-11-08 03:00] VITALS: BP 168/74
[2016-11-08 05:44] LABS: ANION GAP 6 MEQ/L (2-14); CHLORIDE 98 MEQ/L (99-109); GFR ESTIMATE (CALCULATED) > 59 mL/min/; GLUCOSE 290 mg/dL (70-99); POTASSIUM 4.1 MEQ/L (3.7-5.4); SAMPLE HEMOLYSIS CHECK 0; SAMPLE ICTERIC CHECK 0; SAMPLE LIPEMIA CHECK 0; SODIUM 139 MEQ/L (136-147); UREA NITROGEN (BUN) 16 mg/dL (9-23)
[2016-11-08 07:54] LABS: POINT-OF-CARE METER ID UU13113698
[2016-11-08 08:00] VITALS: BP 141/75
[2016-11-08 08:10] LABS: POINT-OF-CARE METER ID UU14174216; POINT-OF-CARE USER ID ENVKC36
[2016-11-08 10:20] LABS: EOSINOPHIL (%) 3.7 % (0-5); EOSINOPHIL COUNT 0.2 K/uL (0-0.3); HEMATOCRIT 28.7 % (38.0-50.0); IMMATURE GRANULOCYTE (%) 0.2 % (0.0-0.7); INSTRUMENT ABS NEUTROPHIL CT 2.9 K/uL; LYMPHOCYTE COUNT 2.1 K/uL (1.0-2.8); MCH 25.9 PG (29.0-34.0); MCHC 29.6 G/DL (30.0-36.0); MCV 87.5 FL (86-99); MEAN PLAT.VOLUME 9.5 uM^3 (9.0-12.4); MONOCYTE (%) 7.9 % (3-12); MONOCYTE COUNT 0.5 K/uL (0-0.8); NEUTROPHIL COUNT 2.9 K/uL (1.8-6.4); PLATELET COUNT 171 K/uL (156-360); RBC DIS.WIDTH-CV 21.7 % (11.8-14.6); RED BLOOD COUNT 3.28 M/uL (4.00-5.50); WHITE BLOOD COUNT 5.7 K/uL (4.1-10.2)
[2016-11-08 11:00] VITALS: BP 138/67
[2016-11-08] MEDS ORDERED: APRESOLINE25 MG PO (11:50)
[2016-11-08] MEDS ORDERED: XARELTO20 MG PO (11:50)
[2016-11-08] MEDS ORDERED: SPIRONOLACTONE25 MG PO (11:50)
[2016-11-08] MEDS ORDERED: BUMETANIDE1 MG PO (11:50)
[2016-11-08] MEDS ORDERED: K-DUR20 MEQ PO (11:57)
[2016-11-08 12:04] LABS: POINT-OF-CARE METER ID UU14174216; POINT-OF-CARE USER ID ENVKC36
== END 2016-11-08 16:00 | disposition home health service (06) | DRG 264 ==
LOC: EME → EDBD 19:37 → 4EAST 22:58 → EDOF 22:58 → 4EAST 23:49
PROVIDERS: Emergency Medicine; Hospitalist; Internal Medicine; Physician Assistant; Physician Assistant Medical; Student in an Organized Health Care Education/Training Program
PROC: B211YZZ Fluoroscopy of Multiple Coronary Arteries using Other Contrast (ICD-10-PCS; 2016-11-02)
PROC: B215YZZ Fluoroscopy of Left Heart using Other Contrast (ICD-10-PCS; 2016-11-02)
PROC: 4A023N7 Measurement of Cardiac Sampling and Pressure, Left Heart, Percutaneous Approach (ICD-10-PCS; 2016-11-02)
PROC: 30233N1 Transfusion of Nonautologous Red Blood Cells into Peripheral Vein, Percutaneous Approach (ICD-10-PCS; principal; 2016-11-07)
PROC: 02HV33Z Insertion of Infusion Device into Superior Vena Cava, Percutaneous Approach (ICD-10-PCS; principal; 2016-11-07)
PROC: 0HBMXZZ Excision of Right Foot Skin, External Approach (ICD-10-PCS; principal; 2016-11-07)
DX: I11.0 Hypertensive heart disease with heart failure (principal); J96.01 Acute respiratory failure with hypoxia; E11.42 Type 2 diabetes mellitus with diabetic polyneuropathy; I42.0 Dilated cardiomyopathy; F11.20 Opioid dependence, uncomplicated; E11.610 Type 2 diabetes mellitus with diabetic neuropathic arthropathy; I48.0 Paroxysmal atrial fibrillation; I50.23 Acute on chronic systolic (congestive) heart failure; E87.6 Hypokalemia; M86.471 Chronic osteomyelitis with draining sinus, right ankle and foot; E11.65 Type 2 diabetes mellitus with hyperglycemia; D64.9 Anemia, unspecified; Z86.14 Personal history of Methicillin resistant Staphylococcus aureus infection; Z79.4 Long term (current) use of insulin; Z79.84 Long term (current) use of oral hypoglycemic drugs; I27.2 Other secondary pulmonary hypertension; E66.01 Morbid (severe) obesity due to excess calories; E11.69 Type 2 diabetes mellitus with other specified complication; E78.5 Hyperlipidemia, unspecified; E03.9 Hypothyroidism, unspecified; L03.115 Cellulitis of right lower limb; G47.33 Obstructive sleep apnea (adult) (pediatric); F17.210 Nicotine dependence, cigarettes, uncomplicated; I77.6 Arteritis, unspecified; Z68.41 Body mass index [BMI] 40.0-44.9, adult
CPT/HCPCS: 36600; 71010; 80048; 80162; 82803; 82948; 83605; 83880; 84484; 85025; 85027; 85347; 85610; 85730; 86850; 86900; 86901; 86920; 87040; 87641; 93005; 93971; 94002; 94640; 94640 76; 94660; 94760; 94799; 99202; 99281; 99285; J0153; J0456; J1815; J1940; J2250; J2543; J3010; J3370; J7050; P9016; S0032

== ENCOUNTER 2016-11-15 19:53 | Inpatient (IN) | payer OTHER ==
[~2016-11-15] VITALS: Ht 182.9 cm; Wt 139.2 kg
[~2016-11-15 19:53] MED LIST changes: +APRESOLINE25 MG PO; +BUMETANIDE1 MG PO; +NAFCIL2 GM IV; +SPIRONOLACTONE25 MG PO; +XARELTO20 MG PO
[2016-11-15 20:22] LABS: EOSINOPHIL (%) 4.2 % (0-5); EOSINOPHIL COUNT 0.1 K/uL (0-0.3); HEMATOCRIT 30.1 % (38.0-50.0); IMMATURE GRANULOCYTE (%) 0.3 % (0.0-0.7); INSTRUMENT ABS NEUTROPHIL CT 0.8 K/uL; LYMPHOCYTE COUNT 1.7 K/uL (1.0-2.8); MCH 26.5 PG (29.0-34.0); MCHC 30.6 G/DL (30.0-36.0); MCV 86.7 FL (86-99); MEAN PLAT.VOLUME 9.4 uM^3 (9.0-12.4); MONOCYTE (%) 14.7 % (3-12); MONOCYTE COUNT 0.5 K/uL (0-0.8); NEUTROPHIL (%) 25.7 % (45-76); NEUTROPHIL COUNT 0.8 K/uL (1.8-6.4); PLATELET COUNT 181 K/uL (156-360); RBC DIS.WIDTH-CV 20.7 % (11.8-14.6); RBC DIS.WIDTH-SD 65.1 % (39-53); RED BLOOD COUNT 3.47 M/uL (4.00-5.50); WHITE BLOOD COUNT 3.1 K/uL (4.1-10.2)
[2016-11-15 20:23] LABS: BASE EXCESS 9.6 mEq/L (-3 to +3); BICARBONATE 34.8 mEq/L (22-26); CARBOXY HGB 3.6 % (0-5); COMMENTS - BLOOD GASES A+C+; DEVICE NC; O2 FLOW 3 L/MIN; PCO2 50 mm Hg (35-45); PO2 82 mm Hg (80-100); SITE RR; pH 7.45 (7.35-7.45)
[2016-11-15 20:28] LABS: CHLORIDE 100 mEq/L (99-109); POTASSIUM 3.8 mEq/L (3.7-5.4); SODIUM 140 mEq/L (136-147)
[2016-11-15 20:29] LABS: D-DIMER ELISA 1.87 mg/L FEU (< 0.57)
[2016-11-15 20:30] LABS: GLUCOSE 214 mg/dL (70-99)
[2016-11-15 20:32] LABS: ANION GAP 12 MEQ/L (2-14); TOTAL BILIRUBIN 0.4 mg/dL (0.0-1.0)
[2016-11-15 20:34] LABS: ALKALINE PHOSPHATASE 67 IU/L (3-129); GFR ESTIMATE (CALCULATED) > 59 mL/min/
[2016-11-15 20:35] LABS: UREA NITROGEN (BUN) 14 mg/dL (9-23)
[2016-11-15 20:38] LABS: TROP-I INTERPRETATION NEGATIVE; TROPONIN-I 0.16 ng/mL (0.0-0.30)
[2016-11-15] MEDS ORDERED: METOPROLOL TAR100 MG PO (22:33)
[2016-11-15] MEDS ORDERED: LYRICA200 MG PO (22:34)
[2016-11-15] MEDS ORDERED: LOSARTAN POTASS25 MG PO (22:36)
[2016-11-15] MEDS ORDERED: DIGITEK250 MC2 PO (22:37)
[2016-11-15] MEDS ORDERED: XARELTO20 MG PO (22:43)
[2016-11-15] MEDS ORDERED: ALDACTONE25 MG PO (22:43)
[2016-11-15] MEDS ORDERED: BUMETANIDE2 MG PO (22:45)
[2016-11-16] VITALS (7 sets, daily range): BP systolic 129–168; BP diastolic 73–83
[2016-11-16 00:33] LABS: DIGOXIN 0.6 ng/mL (0.8-2.0)
[2016-11-16] MEDS ORDERED: SANTYL30 GM TP (02:20)
[2016-11-16 03:14] LABS: TROP-I INTERPRETATION NEGATIVE; TROPONIN-I 0.15 ng/mL (0.0-0.30)
[2016-11-16 09:11] LABS: POINT-OF-CARE METER ID UU13113781
[2016-11-16 09:58] LABS: HEMATOCRIT 29.6 % (38.0-50.0); MCH 25.9 PG (29.0-34.0); MCHC 29.1 G/DL (30.0-36.0); MCV 89.2 FL (86-99); MEAN PLAT.VOLUME 10.2 uM^3 (9.0-12.4); PLATELET COUNT 185 K/uL (156-360); RBC DIS.WIDTH-CV 21.2 % (11.8-14.6); RED BLOOD COUNT 3.32 M/uL (4.00-5.50)
[2016-11-16 09:59] LABS: ANION GAP 3 MEQ/L (2-14); CHLORIDE 102 MEQ/L (99-109); GFR ESTIMATE (CALCULATED) > 59 mL/min/; GLUCOSE 220 mg/dL (70-99); POTASSIUM 3.7 MEQ/L (3.7-5.4); SAMPLE HEMOLYSIS CHECK 0; SAMPLE ICTERIC CHECK 0; SAMPLE LIPEMIA CHECK 0; SODIUM 143 MEQ/L (136-147); UREA NITROGEN (BUN) 14 mg/dL (9-23)
[2016-11-16 10:10] LABS: TROP-I INTERPRETATION NEGATIVE; TROPONIN-I 0.14 ng/mL (0.0-0.30)
[2016-11-16 11:20] LABS: POINT-OF-CARE METER ID UU13113698
[2016-11-16 16:47] LABS: POINT-OF-CARE METER ID UU13113698
[2016-11-16 21:28] LABS: POINT-OF-CARE METER ID UU13113781; POINT-OF-CARE USER ID ENVMNS
[2016-11-17 05:48] VITALS: BP 139/80
[2016-11-17 07:20] LABS: HEMATOCRIT 29.7 % (38.0-50.0); MCH 26.6 PG (29.0-34.0); MCHC 30.3 G/DL (30.0-36.0); MCV 87.9 FL (86-99); MEAN PLAT.VOLUME 9.7 uM^3 (9.0-12.4); PLATELET COUNT 165 K/uL (156-360); RBC DIS.WIDTH-CV 20.9 % (11.8-14.6); RBC DIS.WIDTH-SD 66.6 % (39-53); RED BLOOD COUNT 3.38 M/uL (4.00-5.50); WHITE BLOOD COUNT 4.4 K/uL (4.1-10.2)
[2016-11-17 08:06] LABS: ANION GAP 9 MEQ/L (2-14); CHLORIDE 101 MEQ/L (99-109); GFR ESTIMATE (CALCULATED) > 59 mL/min/; GLUCOSE 144 mg/dL (70-99); POTASSIUM 3.2 MEQ/L (3.7-5.4); SAMPLE HEMOLYSIS CHECK 0; SAMPLE ICTERIC CHECK 0; SAMPLE LIPEMIA CHECK 0; SODIUM 144 MEQ/L (136-147); UREA NITROGEN (BUN) 17 mg/dL (9-23)
[2016-11-17 08:23] LABS: C-REACTIVE PROTEIN 20.2 MG/L (0-10)
[2016-11-17 09:00] VITALS: BP 129/75
[2016-11-17 09:13] LABS: ERTH.SED.RATE 100 MM/HR (0-20)
[2016-11-17 11:47] VITALS: BP 134/70
[2016-11-17 15:50] VITALS: BP 139/78
[2016-11-17 17:26] VITALS: BP 151/71
[2016-11-18] VITALS (7 sets, daily range): BP systolic 113–145; BP diastolic 66–77
[2016-11-18 07:47] LABS: GFR ESTIMATE (CALCULATED) > 59 mL/min/; UREA NITROGEN (BUN) 17 mg/dL (9-23)
[2016-11-18] MEDS ORDERED: LOSARTAN POTASS50 MG PO (15:46)
[2016-11-18] MEDS ORDERED: BUMETANIDE1 MG PO (15:46)
[2016-11-18 21:17] LABS: POINT-OF-CARE METER ID UU14174225
[2016-11-19 03:56] VITALS: BP 138/82
[2016-11-19 06:22] LABS: INTER. NORMALIZED RATIO 1.1; PROTHROMBIN TIME 11.1 (9.2-11.2); PTT 24.6 (25-32)
[2016-11-19 07:30] VITALS: BP 130/81
[2016-11-19 07:58] LABS: POINT-OF-CARE METER ID UU14174225
[2016-11-19 09:05] LABS: ANION GAP 5 MEQ/L (2-14); CHLORIDE 102 MEQ/L (99-109); GFR ESTIMATE (CALCULATED) > 59 mL/min/; GLUCOSE 125 mg/dL (70-99); POTASSIUM 3.7 MEQ/L (3.7-5.4); SAMPLE HEMOLYSIS CHECK 0; SAMPLE ICTERIC CHECK 0; SAMPLE LIPEMIA CHECK 0; SODIUM 142 MEQ/L (136-147); UREA NITROGEN (BUN) 19 mg/dL (9-23)
[2016-11-19 10:02] LABS: BASE EXCESS 10.1 mEq/L (-3 to +3); BICARBONATE 37.3 mEq/L (22-26); CARBOXY HGB 3.6 % (0-5); COMMENTS - BLOOD GASES A+C+; DEVICE NC; METHEMOGLOBIN 1.4 % (0-1.5); O2 FLOW 3 L/MIN; PCO2 66 mm Hg (35-45); PO2 76 mm Hg (80-100); SITE LRA; TOTAL RESP RATE 16 resp/min; pH 7.36 (7.35-7.45)
[2016-11-19 12:04] LABS: BASOPHIL COUNT 0.1 K/uL (0-0.1); EOSINOPHIL (%) 2.6 % (0-5); EOSINOPHIL COUNT 0.2 K/uL (0-0.3); HEMATOCRIT 29.8 % (38.0-50.0); IMMATURE GRANULOCYTE (%) 0.3 % (0.0-0.7); INSTRUMENT ABS NEUTROPHIL CT 2.5 K/uL; LYMPHOCYTE COUNT 2.4 K/uL (1.0-2.8); MCH 26.8 PG (29.0-34.0); MCHC 29.5 G/DL (30.0-36.0); MCV 90.9 FL (86-99); MEAN PLAT.VOLUME 10.6 uM^3 (9.0-12.4); MONOCYTE COUNT 0.6 K/uL (0-0.8); NEUTROPHIL (%) 43.7 % (45-76); NEUTROPHIL COUNT 2.5 K/uL (1.8-6.4); PLATELET COUNT 174 K/uL (156-360); RBC DIS.WIDTH-CV 20.6 % (11.8-14.6); RBC DIS.WIDTH-SD 68.8 % (39-53); RED BLOOD COUNT 3.28 M/uL (4.00-5.50); WHITE BLOOD COUNT 5.7 K/uL (4.1-10.2)
[2016-11-19 12:31] LABS: POINT-OF-CARE METER ID UU14188625
[2016-11-19 13:30] LABS: BICARBONATE 36.7 mEq/L (22-26); CARBOXY HGB 3.8 % (0-5); COMMENTS - BLOOD GASES A+C+; METHEMOGLOBIN 1.3 % (0-1.5); O2 FLOW 2 L/MIN; PCO2 62 mm Hg (35-45); PO2 59 mm Hg (80-100); SITE RRA; pH 7.38 (7.35-7.45)
[2016-11-19 13:31] LABS: DEVICE NC; TOTAL RESP RATE 16 resp/min
[2016-11-19 15:09] LABS: TYPE OF FLUID PLEURAL
[2016-11-19 16:00] LABS: BODY FLUID EOSINOPHILS 0 % (0-25); BODY FLUID RBC'S 3000 /MM^3 (0-100); BODY FLUID WBC'S 642 /MM^3 (0-500); MONONUCLEAR WBC'S 54 %; POLYNUCLEAR WBC'S 46 % (0-25)
[2016-11-19 16:14] LABS: BODY FLUID LDH 75 IU/L; BODY FLUID PROTEIN < 3.0 G/DL
[2016-11-19 16:24] VITALS: BP 129/61
[2016-11-19 16:32] LABS: POINT-OF-CARE METER ID UU14188625
[2016-11-19 19:31] VITALS: BP 143/71
[2016-11-19 21:28] LABS: POINT-OF-CARE METER ID UU14188625
[2016-11-19 23:38] VITALS: BP 122/60
[2016-11-20 03:59] VITALS: BP 121/70
[2016-11-20 05:23] LABS: HEMATOCRIT 26.1 % (38.0-50.0); MCH 27.4 PG (29.0-34.0); MCHC 30.7 G/DL (30.0-36.0); MCV 89.4 FL (86-99); MEAN PLAT.VOLUME 10.4 uM^3 (9.0-12.4); PLATELET COUNT 153 K/uL (156-360); RBC DIS.WIDTH-CV 19.6 % (11.8-14.6); RBC DIS.WIDTH-SD 63.7 % (39-53); RED BLOOD COUNT 2.92 M/uL (4.00-5.50); WHITE BLOOD COUNT 5.9 K/uL (4.1-10.2)
[2016-11-20 05:58] LABS: ANION GAP 3 MEQ/L (2-14); CHLORIDE 99 MEQ/L (99-109); GFR ESTIMATE (CALCULATED) > 59 mL/min/; POTASSIUM 3.5 MEQ/L (3.7-5.4); SAMPLE HEMOLYSIS CHECK 0; SAMPLE ICTERIC CHECK 0; SAMPLE LIPEMIA CHECK 0; SODIUM 139 MEQ/L (136-147); UREA NITROGEN (BUN) 20 mg/dL (9-23)
[2016-11-20 05:59] LABS: GLUCOSE 200 mg/dL (70-99)
[2016-11-20 07:55] LABS: POINT-OF-CARE METER ID UU14174225; POINT-OF-CARE USER ID 612031313
[2016-11-20 08:18] VITALS: BP 127/65
[2016-11-20 12:09] VITALS: BP 112/58
[2016-11-20 15:55] LABS: POINT-OF-CARE METER ID UU14174225
[2016-11-20 15:59] VITALS: BP 106/56
[2016-11-20 20:08] VITALS: BP 127/63
[2016-11-20 23:31] VITALS: BP 138/69
[2016-11-21 03:43] VITALS: BP 163/71
[2016-11-21 06:51] LABS: HEMATOCRIT 28.7 % (38.0-50.0); MEAN PLAT.VOLUME 10.3 uM^3 (9.0-12.4); PLATELET COUNT 166 K/uL (156-360); RBC DIS.WIDTH-CV 19.1 % (11.8-14.6); RBC DIS.WIDTH-SD 63.7 % (39-53); RED BLOOD COUNT 3.19 M/uL (4.00-5.50); WHITE BLOOD COUNT 6.4 K/uL (4.1-10.2)
[2016-11-21 07:24] LABS: ANION GAP 2 MEQ/L (2-14); CHLORIDE 100 MEQ/L (99-109); GFR ESTIMATE (CALCULATED) 57 mL/min/; GLUCOSE 224 mg/dL (70-99); POTASSIUM 4.2 MEQ/L (3.7-5.4); SAMPLE HEMOLYSIS CHECK 0; SAMPLE ICTERIC CHECK 0; SAMPLE LIPEMIA CHECK 0; SODIUM 139 MEQ/L (136-147); UREA NITROGEN (BUN) 20 mg/dL (9-23)
[2016-11-21 07:33] VITALS: BP 160/74
[2016-11-21 09:12] LABS: TYPE OF FLUID PLEURAL
[2016-11-21 09:15] VITALS: BP 131/68
[2016-11-21 10:06] LABS: BODY FLUID EOSINOPHILS 0 % (0-25); BODY FLUID RBC'S 15000 /MM^3 (0-100); BODY FLUID WBC'S 1764 /MM^3 (0-500); MONONUCLEAR WBC'S 91 %; POLYNUCLEAR WBC'S 9 % (0-25)
[2016-11-21 10:20] LABS: BODY FLUID LDH 72 IU/L; BODY FLUID PROTEIN < 3.0 G/DL
[2016-11-21 10:30] VITALS: BP 100/62
[2016-11-21 11:16] VITALS: BP 125/59
[2016-11-21 16:00] VITALS: BP 115/53
== END 2016-11-21 17:28 | disposition home health service (06) | DRG 291 ==
LOC: EME → EDBD 19:53 → 5SOUTH 23:45 → EDOF 23:45 → 4EAST 11-16 01:21 → 5SOUTH 11-17 16:55
PROVIDERS: Emergency Medicine; Hospitalist; Internal Medicine; Nurse Practitioner Family; Physician Assistant Medical; Radiology Diagnostic Radiology
DX: I11.0 Hypertensive heart disease with heart failure (principal); J96.21 Acute and chronic respiratory failure with hypoxia; J96.12 Chronic respiratory failure with hypercapnia; D70.9 Neutropenia, unspecified; R78.81 Bacteremia; I95.9 Hypotension, unspecified; E11.42 Type 2 diabetes mellitus with diabetic polyneuropathy; J90 Pleural effusion, not elsewhere classified; I42.0 Dilated cardiomyopathy; I50.23 Acute on chronic systolic (congestive) heart failure; M86.671 Other chronic osteomyelitis, right ankle and foot; G47.33 Obstructive sleep apnea (adult) (pediatric); J44.9 Chronic obstructive pulmonary disease, unspecified; I48.0 Paroxysmal atrial fibrillation; E78.5 Hyperlipidemia, unspecified; D72.819 Decreased white blood cell count, unspecified; E11.65 Type 2 diabetes mellitus with hyperglycemia; F11.20 Opioid dependence, uncomplicated; E66.01 Morbid (severe) obesity due to excess calories; R19.7 Diarrhea, unspecified; Z79.01 Long term (current) use of anticoagulants; R07.89 Other chest pain; E11.610 Type 2 diabetes mellitus with diabetic neuropathic arthropathy; I49.3 Ventricular premature depolarization; Z68.41 Body mass index [BMI] 40.0-44.9, adult; Z91.19 Patient's noncompliance with other medical treatment and regimen; E11.59 Type 2 diabetes mellitus with other circulatory complications; T36.0X5A Adverse effect of penicillins, initial encounter; I27.2 Other secondary pulmonary hypertension; D50.9 Iron deficiency anemia, unspecified; B95.62 Methicillin resistant Staphylococcus aureus infection as the cause of diseases classified elsewhere; Z99.81 Dependence on supplemental oxygen; R21 Rash and other nonspecific skin eruption; E87.6 Hypokalemia; E03.9 Hypothyroidism, unspecified; F17.210 Nicotine dependence, cigarettes, uncomplicated; I25.10 Atherosclerotic heart disease of native coronary artery without angina pectoris
CPT/HCPCS: 36600; 70450; 71010; 71020; 71275; 80048; 80053; 80162; 82565; 82803; 82945; 82948; 83615; 83615 91; 83880; 84155; 84157; 84484; 84520; 85025; 85027; 85379; 85610; 85651; 85730; 86140; 87070; 87075; 87205; 88108; 88305; 89051; 93005; 94640; 94640 76; 94660; 94760; 94799; 99202; 99281; 99284; J0690; J1644; J1815; J1940; J2270; J2405; J7050; S0032

== ENCOUNTER 2017-07-02 17:03 | Inpatient (IN) | payer OTHER ==
[~2017-07-02] VITALS: Ht 182.9 cm; Wt 127.0 kg
[~2017-07-02 17:03] MED LIST changes: +ALDACTONE25 MG PO; +BUMETANIDE2 MG PO; +DIGITEK250 MC2 PO; +LOPRESSOR50 MG PO; +LOSARTAN POTASS50 MG PO; +METHADOSE10 MG/1 ML PO; +SANTYL30 GM TP
[2017-07-02 20:07] LABS: BASOPHIL COUNT 0.1 K/uL (0-0.1); EOSINOPHIL (%) 2.6 % (0-5); EOSINOPHIL COUNT 0.3 K/uL (0-0.3); HEMATOCRIT 33.5 % (38.0-50.0); IMMATURE GRANULOCYTE (%) 0.4 % (0.0-0.7); INSTRUMENT ABS NEUTROPHIL CT 6.5 K/uL; LYMPHOCYTE COUNT 2.8 K/uL (1.0-2.8); MCH 26.2 PG (29.0-34.0); MCHC 33.1 G/DL (30.0-36.0); MEAN PLAT.VOLUME 10.5 uM^3 (9.0-12.4); MONOCYTE (%) 5.7 % (3-12); MONOCYTE COUNT 0.6 K/uL (0-0.8); NEUTROPHIL (%) 63.2 % (45-76); NEUTROPHIL COUNT 6.5 K/uL (1.8-6.4); PLATELET COUNT 164 K/uL (156-360); RBC DIS.WIDTH-SD 42.5 % (39-53); RED BLOOD COUNT 4.24 M/uL (4.00-5.50); WHITE BLOOD COUNT 10.3 K/uL (4.1-10.2)
[2017-07-02 20:15] LABS: CHLORIDE 99 mEq/L (99-109); INTER. NORMALIZED RATIO 1.1; POTASSIUM 3.8 mEq/L (3.7-5.4); PROTHROMBIN TIME 12.2 SEC (10.2-12.9); SODIUM 137 mEq/L (136-147)
[2017-07-02 20:17] LABS: GLUCOSE 350 mg/dL (70-99); PTT 28.6 SEC (25-37)
[2017-07-02 20:18] LABS: ANION GAP 10 MEQ/L (2-14)
[2017-07-02 20:19] LABS: TOTAL BILIRUBIN 0.4 mg/dL (0.0-1.0)
[2017-07-02 20:21] LABS: ALKALINE PHOSPHATASE 95 IU/L (3-129); GFR ESTIMATE (CALCULATED) 45 mL/min/
[2017-07-02 20:22] LABS: UREA NITROGEN (BUN) 16 mg/dL (9-23)
[2017-07-02 20:24] LABS: LIPASE 7 U/L (1.0-51.0)
[2017-07-02 20:26] LABS: TROP-I INTERPRETATION NEGATIVE; TROPONIN-I 0.18 ng/mL (0.0-0.30)
[2017-07-02 20:37] LABS: ERTH.SED.RATE 71 MM/HR (0-20)
[2017-07-02] MEDS ORDERED: APRESOLINE25 MG PO (21:02)
[2017-07-02] MEDS ORDERED: K-DUR20 MEQ PO (21:04)
[2017-07-02] MEDS ORDERED: BASAGLAR K100 UNIT/1 SC (21:07)
[2017-07-02] MEDS ORDERED: NOVOLOG 10100 UNITS/ SC (21:07)
[2017-07-02] MEDS ORDERED: SERTRALINE HCL50 MG PO (21:08)
[2017-07-02] MEDS ORDERED: METFORMIN HCL1000 MG PO (21:08)
[2017-07-02] MEDS ORDERED: SPIRIVA RESPIMAT4 GM IH (21:08)
[2017-07-02] MEDS ORDERED: DICLOXACILLIN500 MG PO (21:08)
[2017-07-02] MEDS ORDERED: COZAAR50 MG PO (21:08)
[2017-07-02 22:42] LABS: POINT-OF-CARE METER ID UU13113702
[2017-07-02 22:58] LABS: ADD MIUA? YES; BILIRUBIN NEGATIVE; BLOOD MODERATE; COLOR YELLOW ((YELLOW)); GLUCOSE (STRIP) >=500; KETONES NEGATIVE; LEUKOCYTES NEGATIVE; NITRITE NEGATIVE; PROTEIN (STRIP) >=500; SPECIFIC GRAVITY 1.032 (1.000-1.030); UROBILINOGEN 0.2 MG/DL (0.2-1.0)
[2017-07-02 23:05] LABS: BACTERIA RARE /HPF; EPITHELIAL CELLS RARE /HPF; GRANULAR CASTS 0-5 /LPF; HYALINE CASTS 30-40 /LPF; MUCUS TRACE /LPF; RED BLOOD CELLS 20-30 /HPF (0-5); WHITE BLOOD CELLS 0-5 /HPF (0-5)
[2017-07-03 00:11] VITALS: BP 187/86
[2017-07-03 00:31] LABS: POINT-OF-CARE METER ID UU14174225
[2017-07-03 04:55] VITALS: BP 176/88
[2017-07-03 07:05] LABS: BASOPHIL COUNT 0.1 K/uL (0-0.1); EOSINOPHIL (%) 3.1 % (0-5); EOSINOPHIL COUNT 0.3 K/uL (0-0.3); HEMATOCRIT 31.5 % (38.0-50.0); IMMATURE GRANULOCYTE (%) 0.4 % (0.0-0.7); INSTRUMENT ABS NEUTROPHIL CT 4.8 K/uL; LYMPHOCYTE COUNT 3.1 K/uL (1.0-2.8); MCH 25.6 PG (29.0-34.0); MCHC 32.1 G/DL (30.0-36.0); MCV 79.9 FL (86-99); MEAN PLAT.VOLUME 10.5 uM^3 (9.0-12.4); MONOCYTE (%) 7.2 % (3-12); MONOCYTE COUNT 0.6 K/uL (0-0.8); NEUTROPHIL (%) 53.6 % (45-76); NEUTROPHIL COUNT 4.8 K/uL (1.8-6.4); PLATELET COUNT 138 K/uL (156-360); RBC DIS.WIDTH-SD 43.8 % (39-53); RED BLOOD COUNT 3.94 M/uL (4.00-5.50); WHITE BLOOD COUNT 8.9 K/uL (4.1-10.2)
[2017-07-03 07:11] LABS: INTER. NORMALIZED RATIO 1.4; PROTHROMBIN TIME 15.5 SEC (10.2-12.9)
[2017-07-03 07:14] LABS: PTT 33.2 SEC (25-37)
[2017-07-03 07:29] LABS: ANION GAP 9 MEQ/L (2-14); CHLORIDE 105 MEQ/L (99-109); Estimated Average Glucose 183 mg/dL (70-123); POTASSIUM 3.7 MEQ/L (3.7-5.4); SAMPLE HEMOLYSIS CHECK 0; SAMPLE ICTERIC CHECK 0; SAMPLE LIPEMIA CHECK 0; SODIUM 143 MEQ/L (136-147)
[2017-07-03 07:35] LABS: GFR ESTIMATE (CALCULATED) > 59 mL/min/; HDL CHOLESTEROL 26 MG/DL (Desirable>=40); LDL CHOLESTEROL 137 mg/dL (Desirable<100); NON-HDL CHOLESTEROL 188 mg/dL (Desirable<160); TOTAL CHOLESTEROL 214 mg/dL (Desirable<200); TRIGLYCERIDES 253 MG/DL (Normal: <150); UREA NITROGEN (BUN) 18 mg/dL (9-23)
[2017-07-03 07:38] LABS: GLUCOSE 159 mg/dL (70-99)
[2017-07-03 07:42] LABS: POINT-OF-CARE METER ID UU13113717
[2017-07-03 07:48] VITALS: BP 192/90
[2017-07-03 11:54] VITALS: BP 185/89
[2017-07-03 12:10] LABS: POINT-OF-CARE METER ID UU14174225
[2017-07-03 16:23] VITALS: BP 167/79
[2017-07-03 17:34] LABS: POINT-OF-CARE METER ID UU14174225
[2017-07-03 19:23] VITALS: BP 152/72
[2017-07-03 21:50] LABS: POINT-OF-CARE METER ID UU14174225
[2017-07-04] VITALS (7 sets, daily range): BP systolic 138–178; BP diastolic 74–89
[2017-07-04 09:06] LABS: POINT-OF-CARE METER ID UU14188625
[2017-07-04] MEDS ORDERED: XARELTO20 MG PO (12:17)
[2017-07-04 12:27] LABS: POINT-OF-CARE METER ID UU13113717
[2017-07-04 17:57] LABS: POINT-OF-CARE METER ID UU13113717
[2017-07-04 21:08] LABS: POINT-OF-CARE METER ID UU13113717
[2017-07-05 03:41] VITALS: BP 160/80
[2017-07-05 07:33] VITALS: BP 138/86
[2017-07-05 08:06] LABS: POINT-OF-CARE METER ID UU13113717
== END 2017-07-05 12:39 | disposition home or self-care (01) | DRG 74 ==
LOC: EME 17:03 → 5SOUTH 21:19 → EDOF 21:19 → ENRESERV 21:20 → 5SOUTH 23:37
PROVIDERS: Internal Medicine; Physician Assistant
DX: E11.40 Type 2 diabetes mellitus with diabetic neuropathy, unspecified (principal); H49.02 Third [oculomotor] nerve palsy, left eye; I67.82 Cerebral ischemia; E11.65 Type 2 diabetes mellitus with hyperglycemia; E11.610 Type 2 diabetes mellitus with diabetic neuropathic arthropathy; M14.671 Charcot's joint, right ankle and foot; E11.69 Type 2 diabetes mellitus with other specified complication; M86.671 Other chronic osteomyelitis, right ankle and foot; I11.0 Hypertensive heart disease with heart failure; I50.22 Chronic systolic (congestive) heart failure; I48.0 Paroxysmal atrial fibrillation; I42.0 Dilated cardiomyopathy; I27.20 Pulmonary hypertension, unspecified; R53.1 Weakness; F11.20 Opioid dependence, uncomplicated; G89.29 Other chronic pain; J44.9 Chronic obstructive pulmonary disease, unspecified; E78.2 Mixed hyperlipidemia; D64.9 Anemia, unspecified; E03.9 Hypothyroidism, unspecified; F41.9 Anxiety disorder, unspecified; F32.9 Major depressive disorder, single episode, unspecified; F17.210 Nicotine dependence, cigarettes, uncomplicated; E66.01 Morbid (severe) obesity due to excess calories; Z68.41 Body mass index [BMI] 40.0-44.9, adult; Z79.01 Long term (current) use of anticoagulants; Z79.4 Long term (current) use of insulin; Z23 Encounter for immunization
CPT/HCPCS: 70450; 70496; 70498; 70551; 71020; 72141; 80048 91; 80053; 80061; 81003; 82948; 83036; 83690; 84484; 85025; 85025 91; 85610; 85651; 85730; 90686; 93005; 94640; 94640 76; 94799; 99202; 99281; 99285; J1815; J7040